=== PATIENT | male | born 1985 | race Caucasian/White ===

== ENCOUNTER 2021-10-21 09:30 | Outpatient (RCR) | payer OTHER | END 2021-10-24 | disposition home or self-care (01) | LOC: WSOT | DX: M25.531 Pain in right wrist (principal) ==

== ENCOUNTER 2021-11-12 10:00 | Outpatient (RCR) | payer OTHER | END 2021-11-24 | disposition home or self-care (01) | LOC: WSOT | DX: M25.531 Pain in right wrist (principal) ==